=== PATIENT | female | born 1980 | race Caucasian/White ===

== ENCOUNTER 2017-02-12 18:30 | Emergency (ER) | payer BC ==
--- NOTE | 2017-03-18 15:38 | ER ---
ADMIT: 02/12/2017 RM/LOC: ER [facility] MR#: [id number] [facility] [place], [place] [id number] [address] [place], [place] [id number] Emergency Room Report SEX: F AGE: 36 : 1980 DATE: 02/12/2017 HISTORY OF PRESENT ILLNESS: A 36-year-old female with left-sided chest pain for the past several hours. It came on suddenly. She describes it as sharp and dull and burning, worsened with movement of the torso and deep inspiration. See T-sheet for remainder of history and physical. EKG is within normal parameters. Chest x-ray is pending at this time; however, anticipated being normal. The patient will be discharged with a diagnosis of chest wall pain. She was given Toradol in the Emergency Department. Instructed to follow up primary doctor if not better in 2 or 3 days. Chandler Gonzales MD/ marcellus JOB #: [id number] CC: Diego Daniels MD, Attending Physician Evgeny Penn MD, Family Physician
== END 2017-02-12 19:45 | disposition home or self-care (01) ==
LOC: ER 18:30
DX: R07.89 Other chest pain (principal); F31.9 Bipolar disorder, unspecified; F41.9 Anxiety disorder, unspecified; Z88.0 Allergy status to penicillin; Z79.899 Other long term (current) drug therapy; Z90.710 Acquired absence of both cervix and uterus